=== PATIENT | male | born 1970 | race Native Hawaiian/Other Pacific Islander ===

== ENCOUNTER 2023-04-02 01:35 | Emergency (ER) | payer OTHER ==
[~2023-04-02] VITALS: Ht 180.3 cm; Wt 81.6 kg
[2023-04-02 05:50] VITALS: BP 148/86; TEMP 98.2
== END 2023-04-02 05:50 | disposition home or self-care (01) ==
LOC: ED 01:35
DX: M10.9 Gout, unspecified (principal); I16.0 Hypertensive urgency
CPT/HCPCS: 96372; 99283; J1100; J1885